=== PATIENT | female | born 1975 | race Caucasian/White ===

== ENCOUNTER 2023-11-21 12:20 | Inpatient (IN) | payer MEDICAID ==
[~2023-11-21] VITALS: Ht 170.2 cm; Wt 88.5 kg
[2023-11-21 13:02] LABS: BASOPHILS % (AUTO) 0.2 % (0-1); EOSINOPHILS # (AUTO) 0.1 X10'3 (0-0.9); EOSINOPHILS % (AUTO) 0.7 % (0-6); HEMATOCRIT 46.2 % (35.0-45.0); HEMOGLOBIN 15.6 g/dl (12.0-16.0); LYMPHOCYTES # (AUTO) 1.9 X10'3 (1.1-4.8); MEAN CORPUSCULAR HEMOGLOBIN 35.7 PG (27.0-31.0); MEAN CORPUSCULAR HGB CONC 33.7 g/dL (33.0-36.5); MEAN CORPUSCULAR VOLUME 105.9 FL (78-98); MEAN PLATELET VOLUME 8.4 FL (7.4-10.4); MONOCYTES # (AUTO) 0.5 X10'3 (0-0.9); MONOCYTES % (AUTO) 6.4 % (2-12); NEUTROPHILS # (AUTO) 5.6 X10'3 (1.8-7.7); NEUTROPHILS % (AUTO) 69.7 % (42-75); PLATELET COUNT 192 X10'3 (140-440); RED BLOOD COUNT 4.37 X10'6 (4.20-5.60); WHITE BLOOD COUNT 8.1 X10'3 (4.5-11.0)
[2023-11-21 13:08] LABS: APTT 26 SECONDS (22-32); PROTHROMBIN TIME 10.9 SECONDS (9.0-12.0)
[2023-11-21 13:13] LABS: ALBUMIN 3.7 G/DL (3.4-5.0); ANION GAP 12 (8-16); BLOOD UREA NITROGEN 9 MG/DL (7-18); BUN/CREATININE RATIO 12.5 (10.0-20.0); CALCIUM 8.9 MG/DL (8.5-10.1); CHLORIDE 104 MMOL/L (99-107); CREATININE 0.72 MG/DL (0.40-0.90); GLUCOSE 93 MG/DL (70-104); POTASSIUM 3.8 MMOL/L (3.5-5.1); SODIUM 140 MMOL/L (135-145); TOTAL CARBON DIOXIDE 23.8 MMOL/L (24-32); eCRCL 91 ML/MIN; eGFR 86 ML/MIN
[2023-11-21 13:25] LABS: ALANINE AMINOTRANSFERASE 30 U/L (12-78); ALBUMIN 3.6 G/DL (3.4-5.0); ALBUMIN/GLOBULIN RATIO 0.8 (1.1-1.5); ALKALINE PHOSPHATASE 68 IU/L (46-116); ASPARTATE AMINO TRANSFERASE 30 U/L (10-37); BILIRUBIN,DIRECT 0.1 MG/DL (0-0.3); BILIRUBIN,TOTAL 0.4 MG/DL (0.1-1.0); THYROID STIMULATING HORMONE 1.25 ulU/ml (0.34-4.50)
[2023-11-21 13:45] LABS: ETHANOL 26 MG/DL (<10)
[2023-11-21] MEDS: hydrALAZINE 20mg/ml inj. IV ONE (13:48)
[2023-11-21] MEDS: hyDRALAzine 10mg tablet PO SCH (13:54)
[2023-11-21] MEDS ORDERED: hyDRALAzine 10mg tablet PO SCH (14:55)
[2023-11-21] MEDS: nitroGLYCERIN 0.2mg/hour patch TD ONE (15:05)
[2023-11-21] MEDS ORDERED: dextrose 50%-water 50ml dispensing syringe IV PRN (15:40)
[2023-11-21] MEDS ORDERED: mag hydrox/Alum hydrox/simeth 30ml oral suspension PO PRN (15:40)
[2023-11-21] MEDS ORDERED: ondansetron 4mg rapidly disintigrating tab PO PRN (15:40)
[2023-11-21] MEDS ORDERED: ondansetron/PF 4mg/2ml inj IV PRN (15:40)
[2023-11-21] MEDS ORDERED: HYDROcodone/acetaminophen 10/325mg tab PO PRN (15:40)
[2023-11-21] MEDS ORDERED: magnesium Cl slow-release 64mg tablet PO PRN (15:40)
[2023-11-21] MEDS ORDERED: diphenhydrAMINE 25mg capsule PO PRN (15:40)
[2023-11-21] MEDS ORDERED: potassium Cl 20 mEq SR tablet PO PRN ×2 (15:40)
[2023-11-21] MEDS ORDERED: bisacodyl 10mg suppository rectal RC PRN (15:40)
[2023-11-21] MEDS ORDERED: acetaminophen 325mg tablet PO PRN (15:40)
[2023-11-21] MEDS ORDERED: HYDROcodone/acetaminophen 5mg/325mg tablet PO PRN (15:40)
[2023-11-21] MEDS ORDERED: potassium Cl 40MEQ/1/2NS 520ml 520 ML IV PRN (15:40)
[2023-11-21] MEDS ORDERED: magnesium 4gm in 100ml NS 100 ML IV PRN (15:40)
[2023-11-21] MEDS ORDERED: haloperidol 5mg tablet PO PRN (15:40)
[2023-11-21] MEDS ORDERED: LORazepam 2 mg/ml vial IV PRN (15:40)
[2023-11-21] MEDS ORDERED: acetaminophen 650mg rectal suppository RC PRN (15:40)
[2023-11-21] MEDS ORDERED: magnesium 2GM in 50ml NS 50 ML IV PRN (15:40)
[2023-11-21] MEDS ORDERED: haloperidol lactate 5mg/ml inj IM PRN (15:40)
[2023-11-21] MEDS ORDERED: morphine 2 MG/ML inj. syringe IV PRN ×2 (15:40)
[2023-11-21] MEDS ORDERED: diphenhydrAMINE 50 mg/ml inj IV PRN (15:40)
[2023-11-21] MEDS ORDERED: magnesium hydroxide 30ml (MOM) UD suspension PO PRN (15:40)
[2023-11-21 15:41] LABS: D-DIMER 0.67 MG/L FEU (0-0.50)
[2023-11-21] MEDS ORDERED: hydrALAZINE 20mg/ml inj. IV PRN (15:50)
[2023-11-21 15:55] LABS: BILIRUBIN,URINE NEGATIVE (Neg); CLARITY,URINE CLOUDY (Clear); COLOR,URINE YELLOW (Yellow); GLUCOSE, URINE NEGATIVE (Neg); KETONES,URINE NEGATIVE (Neg); LEUKOCYTE ESTERASE ,URINE NEGATIVE (Neg); NITRITES, URINE NEGATIVE (Neg); OCCULT BLOOD,URINE NEGATIVE (Neg); PH,URINE 6.5 (4.8-8.0); PROTEIN,URINE NEGATIVE (Neg); UROBILINOGEN,URINE 0.2 E.U/dL (0.2-1.0)
[2023-11-21] MEDS: nicotine 21mg patch - 24 hr TD ONE (15:55)
[2023-11-21 15:56] LABS: UA COLLECTION TYPE CLN CATCH MIDSTREAM
[2023-11-21 16:08] LABS: SQUAMOUS EPITHELIAL CELL,UR MANY /LPF (FEW)
[2023-11-21 16:10] LABS: WBC,URINE 0-4 /HPF (0-4)
[2023-11-21 16:11] LABS: BACTERIA,URINE 3+ /HPF (Neg)
[2023-11-21 16:19] LABS: URINE AMPHETAMINE SCREEN NEGATIVE (Neg); URINE BARBITUATE SCREEN NEGATIVE (Neg); URINE BENZODIAZEPINES SCREEN NEGATIVE (Neg); URINE CANNABINOID SCREEN NEGATIVE (Neg); URINE COCAINE SCREEN NEGATIVE (Neg); URINE METHADONE SCREEN NEGATIVE (Neg); URINE PHENCYCLIDINE SCREEN NEGATIVE (Neg)
[2023-11-21 16:44] LABS: HEMOGLOBIN A1C 4.9 % (4.5-6.2); MAGNESIUM 1.5 MG/DL (1.5-2.4); POTASSIUM 3.7 MMOL/L (3.5-5.1)
[2023-11-21 16:56] LABS: CREATINE KINASE 48 U/L (26-192); LIPASE 22 U/L (16-77); MAGNESIUM 1.5 MG/DL (1.5-2.4); PHOSPHORUS 2.3 MG/DL (2.3-4.5); PRO BRAIN NATRIURETIC PEPTIDE 134 PG/ML (0-125)
[2023-11-21] MEDS: cloNIDine 0.1 mg tablet PO STA (17:19)
[2023-11-21] MEDS: propranolol 10mg tablet PO ONE (17:19)
[2023-11-21] MEDS: diazepam 5mg tablet PO ONE (17:19)
[2023-11-21] MEDS ORDERED: ALBU18HF2 (17:42)
[2023-11-21] MEDS ORDERED: TIOT4MIS2 INH (17:42)
[2023-11-21] MEDS: dextrose 5%-1/2 normal saline 1,000 ML IV SCH (19:46)
[2023-11-21] MEDS: CefTRIAXone/D5W-Rocephin 1gm 50 ML IV SCH (19:47)
[2023-11-21] MEDS: docusate sod 100mg capsule PO SCH (19:53)
[2023-11-21] MEDS: thiamine 100mg/ml 2ml inj. IV SCH (19:53)
[2023-11-21] MEDS: K and/or MAG REPLACEMENT MC SCH (19:54)
[2023-11-21 20:00] VITALS: RESP 18; O2SAT 94
[2023-11-21] MEDS: temazepam 15mg capsule PO PRN (20:34)
[2023-11-21 22:00] VITALS: BP 152/107; PULSE 87; RESP 18; TEMP 98.2; O2SAT 98
[2023-11-22 02:00] VITALS: BP 135/81; PULSE 69; RESP 20; TEMP 97.4; O2SAT 98
[2023-11-22 06:00] VITALS: BP 159/96; PULSE 84; RESP 16; TEMP 97.6; O2SAT 91
[2023-11-22 06:31] LABS: BASOPHILS % (AUTO) 0.3 % (0-1); EOSINOPHILS # (AUTO) 0.1 X10'3 (0-0.9); EOSINOPHILS % (AUTO) 1.2 % (0-6); HEMATOCRIT 40.7 % (35.0-45.0); HEMOGLOBIN 13.7 g/dl (12.0-16.0); LYMPHOCYTES # (AUTO) 1.6 X10'3 (1.1-4.8); LYMPHOCYTES % (AUTO) 22.8 % (21-51); MEAN CORPUSCULAR HEMOGLOBIN 35.8 PG (27.0-31.0); MEAN CORPUSCULAR HGB CONC 33.8 g/dL (33.0-36.5); MEAN PLATELET VOLUME 8.6 FL (7.4-10.4); MONOCYTES # (AUTO) 0.4 X10'3 (0-0.9); MONOCYTES % (AUTO) 5.6 % (2-12); NEUTROPHILS % (AUTO) 70.1 % (42-75); PLATELET COUNT 164 X10'3 (140-440); RED BLOOD COUNT 3.84 X10'6 (4.20-5.60); RED CELL DISTRIBUTION WIDTH 12.9 % (11.5-14.5); WHITE BLOOD COUNT 7.1 X10'3 (4.5-11.0)
[2023-11-22 06:37] LABS: ALANINE AMINOTRANSFERASE 23 U/L (12-78); ALBUMIN 2.9 G/DL (3.4-5.0); ALBUMIN/GLOBULIN RATIO 0.8 (1.1-1.5); ALKALINE PHOSPHATASE 54 IU/L (46-116); ANION GAP 8 (8-16); ASPARTATE AMINO TRANSFERASE 17 U/L (10-37); BILIRUBIN,TOTAL 0.7 MG/DL (0.1-1.0); BLOOD UREA NITROGEN 6 MG/DL (7-18); BUN/CREATININE RATIO 8.7 (10.0-20.0); CALCIUM 8.7 MG/DL (8.5-10.1); CHLORIDE 103 MMOL/L (99-107); CHOL/HDL RATIO 2.7 (0.00-4.99); CHOLESTEROL 165 MG/DL (0-200); CREATININE 0.69 MG/DL (0.40-0.90); GLUCOSE 103 MG/DL (70-104); HDL CHOLESTEROL 61 MG/DL (35-60); LDL CHOLESTEROL 94 MG/DL (50-100); MAGNESIUM 1.7 MG/DL (1.5-2.4); POTASSIUM 3.5 MMOL/L (3.5-5.1); SODIUM 135 MMOL/L (135-145); TOTAL CARBON DIOXIDE 24.3 MMOL/L (24-32); TOTAL PROTEIN 6.6 G/DL (6.4-8.2); TRIGLYCERIDES 79 MG/DL (20-135); eCRCL 95 ML/MIN; eGFR 90 ML/MIN
[2023-11-22] MEDS: folic acid 1mg/0.2ml inj IV SCH (08:12)
[2023-11-22] MEDS: pantoprazole 40mg Tablet.DR PO SCH (08:12)
[2023-11-22 11:00] VITALS: BP 148/80; PULSE 77; RESP 16; TEMP 98.1; O2SAT 97
[2023-11-22] MEDS: acetaminophen 325mg tablet PO PRN (11:14)
[2023-11-22] MEDS ORDERED: FOLI1TAB34 PO (14:06)
[2023-11-22] MEDS ORDERED: MULT-1085 PO (14:06)
[2023-11-22] MEDS ORDERED: LISI2.5T14 PO (14:06)
[2023-11-23] MEDS ORDERED: LORazepam 2 mg/ml vial IV PRN (15:40)
[2023-11-23] MEDS ORDERED: LORazepam 1 MG tablet PO PRN (15:40)
[2023-11-25] MEDS ORDERED: thiamine 100mg tablet PO SCH (08:00)
[2023-11-25] MEDS ORDERED: LORazepam 1 MG tablet PO PRN (15:40)
[2023-11-25] MEDS ORDERED: LORazepam 2 mg/ml vial IV PRN (15:40)
[2023-11-26] MEDS ORDERED: folic acid 1mg tablet PO SCH (08:00)
== END 2023-11-22 14:50 | disposition home or self-care (01) | DRG 47 ==
LOC: ER 12:22 → ED HOLD 15:47 → PCU 3S 19:20
PROVIDERS: ADMIT Family Medicine; ATTEND Family Medicine
DX: G45.9 Transient cerebral ischemic attack, unspecified (principal); D75.89 Other specified diseases of blood and blood-forming organs; F10.132 Alcohol abuse with withdrawal with perceptual disturbance; F17.200 Nicotine dependence, unspecified, uncomplicated; F10.129 Alcohol abuse with intoxication, unspecified; I10 Essential (primary) hypertension; I16.1 Hypertensive emergency; N39.0 Urinary tract infection, site not specified; Z88.5 Allergy status to narcotic agent
CPT/HCPCS: 36415; 70450; 70551; 71045; 80048; 80053; 80061; 80076; 80305; 80320; 81001; 82550; 82948; 83036; 83690; 83735; 83880; 84100; 84132; 84443; 84484; 85025; 85379; 85610; 85730; 87081; 93005; 93306; 96374; 99291; G0378; J0360; J0696; J3411; J3490; J7030

== ENCOUNTER 2023-11-24 14:46 | Emergency (ER) | payer MEDICAID ==
[~2023-11-24] VITALS: Ht 170.2 cm; Wt 101.8 kg
[~2023-11-24 14:46] MED LIST: ALBU18HF2; FOLI1TAB34 PO; LISI2.5T14 PO; MULT-1085 PO; TIOT4MIS2 INH
[2023-11-24 15:03] VITALS: TEMP 98.6; O2SAT 97
[2023-11-24 16:08] LABS: BASOPHILS # (AUTO) 0.1 X10'3 (0-0.2); BASOPHILS % (AUTO) 0.6 % (0-1); EOSINOPHILS # (AUTO) 0.1 X10'3 (0-0.9); EOSINOPHILS % (AUTO) 0.7 % (0-6); HEMATOCRIT 44.6 % (35.0-45.0); HEMOGLOBIN 15.4 g/dl (12.0-16.0); LYMPHOCYTES # (AUTO) 2.2 X10'3 (1.1-4.8); MEAN CORPUSCULAR HEMOGLOBIN 36.5 PG (27.0-31.0); MEAN CORPUSCULAR HGB CONC 34.6 g/dL (33.0-36.5); MEAN CORPUSCULAR VOLUME 105.7 FL (78-98); MEAN PLATELET VOLUME 8.8 FL (7.4-10.4); MONOCYTES # (AUTO) 0.5 X10'3 (0-0.9); MONOCYTES % (AUTO) 5.5 % (2-12); NEUTROPHILS # (AUTO) 5.9 X10'3 (1.8-7.7); NEUTROPHILS % (AUTO) 68.2 % (42-75); PLATELET COUNT 202 X10'3 (140-440); RED BLOOD COUNT 4.21 X10'6 (4.20-5.60); RED CELL DISTRIBUTION WIDTH 12.8 % (11.5-14.5); WHITE BLOOD COUNT 8.7 X10'3 (4.5-11.0)
[2023-11-24 16:15] LABS: APTT 28 SECONDS (22-32); PROTHROMBIN TIME 10.8 SECONDS (9.0-12.0)
[2023-11-24 16:16] LABS: ALANINE AMINOTRANSFERASE 35 U/L (12-78); ALBUMIN 3.7 G/DL (3.4-5.0); ALBUMIN/GLOBULIN RATIO 0.8 (1.1-1.5); ALKALINE PHOSPHATASE 60 IU/L (46-116); ANION GAP 9 (8-16); ASPARTATE AMINO TRANSFERASE 27 U/L (10-37); BILIRUBIN,TOTAL 0.7 MG/DL (0.1-1.0); BLOOD UREA NITROGEN 7 MG/DL (7-18); BUN/CREATININE RATIO 8.6 (10.0-20.0); CALCIUM 8.7 MG/DL (8.5-10.1); CHLORIDE 100 MMOL/L (99-107); CREATININE 0.81 MG/DL (0.40-0.90); GLUCOSE 126 MG/DL (70-104); POTASSIUM 3.4 MMOL/L (3.5-5.1); SODIUM 133 MMOL/L (135-145); TOTAL CARBON DIOXIDE 24.2 MMOL/L (24-32); TOTAL PROTEIN 8.5 G/DL (6.4-8.2); eCRCL 81 ML/MIN; eGFR 75 ML/MIN
[2023-11-24 16:23] LABS: BILIRUBIN,URINE NEGATIVE (Neg); CLARITY,URINE CLOUDY (Clear); COLOR,URINE YELLOW (Yellow); GLUCOSE, URINE NEGATIVE (Neg); KETONES,URINE NEGATIVE (Neg); LEUKOCYTE ESTERASE ,URINE NEGATIVE (Neg); NITRITES, URINE NEGATIVE (Neg); OCCULT BLOOD,URINE SMALL (Neg); PH,URINE 6.5 (4.8-8.0); PROTEIN,URINE NEGATIVE (Neg); UROBILINOGEN,URINE 0.2 E.U/dL (0.2-1.0)
[2023-11-24 16:26] LABS: FREE T4 (FREE THYROXINE) 0.92 NG/DL (0.73-1.40); PRO BRAIN NATRIURETIC PEPTIDE 274 PG/ML (0-125); THYROID STIMULATING HORMONE 1.24 ulU/ml (0.34-4.50)
[2023-11-24] MEDS: cloNIDine 0.1 mg tablet PO ONE (16:26)
[2023-11-24 16:32] LABS: MUCUS STRANDS FEW /LPF (Neg); SQUAMOUS EPITHELIAL CELL,UR MANY /LPF (FEW); UA COLLECTION TYPE CLN CATCH MIDSTREAM
[2023-11-24 16:33] LABS: BACTERIA,URINE 1+ /HPF (Neg); RBC,URINE 0-2 /HPF (0-2); WBC,URINE 0-4 /HPF (0-4)
[2023-11-24 16:36] LABS: URINE AMPHETAMINE SCREEN NEGATIVE (Neg); URINE BARBITUATE SCREEN NEGATIVE (Neg); URINE BENZODIAZEPINES SCREEN NEGATIVE (Neg); URINE CANNABINOID SCREEN NEGATIVE (Neg); URINE COCAINE SCREEN NEGATIVE (Neg); URINE METHADONE SCREEN NEGATIVE (Neg); URINE PHENCYCLIDINE SCREEN NEGATIVE (Neg)
[2023-11-24] MEDS ORDERED: LOSA-415 PO (16:43)
[2023-11-24 17:07] VITALS: BP 150/100; PULSE 83; RESP 16
== END 2023-11-24 17:07 | disposition home or self-care (01) ==
LOC: ER 14:46
DX: G93.2 Benign intracranial hypertension (principal); R20.2 Paresthesia of skin; F10.10 Alcohol abuse, uncomplicated; Z88.5 Allergy status to narcotic agent; Z79.899 Other long term (current) drug therapy; Y90.6 Blood alcohol level of 120-199 mg/100 ml
CPT/HCPCS: 36415; 71045; 80053; 80305; 81001; 83880; 84439; 84443; 84484; 85025; 85610; 85730; 93005; 99285